=== PATIENT | female | born 1985 | race Caucasian/White ===

== ENCOUNTER 2016-11-25 21:05 | Inpatient (IN) | payer OTHER ==
[2016-11-25] MEDS ORDERED: AMPICILLIN - 100 ML IVPB ONE (22:00)
[2016-11-25 23:05] LABS: BASOPHIL 0.5 % (0-2.0); EOSINOPHIL 1.1 % (0-4.5); MCH 30.4 pg (25.7-33.7); MCHC 34.2 g/dl (32.0-36.0); MEAN CELL VOLUME 89.1 fl (80-96); MEAN PLT VOLUME 9.6 fl (7.5-11.1); NEUTROPHILS 71.2 % (42.8-82.8); PLATELET COUNT 238 K/MM3 (134-434); RDW 14.4 % (11.6-15.6); WHITE BLOOD COUNT 7.8 K/mm3 (4.0-10.0)
[2016-11-25 23:09] LABS: URINE APPEARANCE CLEAR; URINE BILIRUBIN NEGATIVE (NEGATIVE); URINE COLOR LTYELLOW; URINE GLUCOSE (UA) NEGATIVE (NEGATIVE); URINE KETONE NEGATIVE (NEGATIVE); URINE LEUK ESTERASE NEGATIVE (NEGATIVE); URINE NITRITE NEGATIVE (NEGATIVE); URINE UROBILINOGEN NEGATIVE E.U./dl (0.2-1.0)
[2016-11-25 23:13] LABS: INR 1.09 (0.82-1.09)
[2016-11-25 23:16] LABS: ACTIVATED PTT 28.9 SECONDS (26.9-34.4)
[2016-11-25 23:20] LABS: URINE BLOOD 1+ (NEGATIVE); URINE PROTEIN 1+ (NEGATIVE)
[2016-11-25 23:22] LABS: URINE RBC 4 /hpf (0-3); URINE WBC 1 /hpf (3-5)
[2016-11-25 23:27] VITALS: BMI 40.4
[2016-11-25] MEDS ORDERED: DEXTROSE 5%-LACTATED RINGERS 1,000 ML IV SCH ×2 (23:30→23:45)
[2016-11-25] MEDS ORDERED: BUTORPHANOL TARTRATE 1 MG/ML VIAL IVPB ONE (23:57)
[2016-11-26] MEDS ORDERED: TUBERCULIN PPD 5 TU/0.1ML SYRINGE (IN PATIENT USE ONLY) ID ONE
--- NOTE | 2016-11-26 00:02 | HP ---
[id number] Source: Patient - Past Medical History ...: 6 ...Para: 0 ...Term: 0 ...: 0 ...Spon : 0 ...Induced : 5 ...Multiple Gestation: 0 ...LMP: 02/03/16 ... Weeks Gestation by Dates: 42.2 ...EDC by Dates: 11/09/16 ...EDC by Sono: 11/18/16 - Past Surgical History Hx Myomectomy: No Hx Transabdominal Cerclage: No - Smoking History Smoking history: Never smoked Have you smoked in the past 12 months: No - Alcohol/Substance Use Hx Alcohol Use: No - Social History History of Recent Travel: No Home Medications - Allergies Allergies/Adverse Reactions: Allergies Allergy/AdvReac Type Severity Reaction Status Date / Time No Known Allergies Allergy Verified 11/25/16 21:55 - Home Medications Home Medications: Ambulatory Orders Mesalamine [Apriso] 0.375 gm PO DAILY 11/25/16 Vitamins (Sjr) - 1 tab PO DAILY 11/25/16 Ibuprofen [Motrin -] 600 mg PO QID PRN #28 tablet 11/28/16 Oxycodone HCl/Acetaminophen [Percocet 5-325 mg Tablet -] 1 tab PO Q4H #30 tablet MDD 6 11/28/16 Physical Exam - Maternity Vital Signs: Vital Signs Temperature 97.6 F 11/25/16 22:00 Pulse Rate 99 H 11/25/16 23:00 Respiratory Rate 20 11/25/16 23:00 Blood Pressure 132/79 11/25/16 23:00 O2 Sat by Pulse Oximetry (%) Constitutional: Yes: Well Nourished, No Distress Eyes: Yes: WNL HENT: Yes: WNL Neck: Yes: WNL Cardiovascular: Yes: WNL Lungs: Clear to auscultation Breast(s): Yes: WNL - Abdominal Exam/OB Category: I Decelerations: None - Vaginal Exam/OB Vaginal Bleediing: No Dilatation (cm): closed Amniotic Fluid: Yes: Clear - Physical Exam Psychiatric: Yes: WNL, Alert, Oriented - Labs Lab Results: CBC, BMP 11/25/16 21:30 Problem List - Problems (1) Spontaneous rupture of membranes Code(s): [id number] - Assessment/Plan srom Cat 1 Plan admit observe if no labor will do cervidil
[2016-11-26 00:15] LABS: CALCIUM 8.8 mg/dL (8.5-10.1); CREATININE 0.6 mg/dL (0.55-1.02); URIC ACID 4.7 mg/dL (2.6-7.2)
[2016-11-26] MEDS: AMPICILLIN - 100 ML IVPB SCH ×3 (02:00→10:00)
[2016-11-26 03:08] LABS: SGOT/AST 13 U/L (15-37); SGPT/ALT 10 U/L (12-78)
[2016-11-26] MEDS ORDERED: ELECTROLYTE-148 SOLN 1,000 ML IV SCH ×2 (10:25→11:25)
[2016-11-26] MEDS ORDERED: CITRIC ACID/SODIUM CITRATE 30 ML UNIT-DOSE CUP PO ONE (10:29)
[2016-11-26 12:00] LABS: ARTERIAL BLD GAS O2 SATURATION 18.5 % (90-98.9); ARTERIAL BLOOD GAS BASE EXCESS -3.2 meq/l (-2-2); ARTERIAL BLOOD GAS HCO3 23.8 meq/L (22-26); ARTERIAL BLOOD GAS PO2 14.1 mmHg (80-100); LPM/O2% 21%; PT. ON O2? NO
[2016-11-26 12:01] LABS: TYPE OF O2 ROOM AIR
[2016-11-26 12:02] LABS: ARTERIAL BLD GAS O2 SATURATION 50.6 % (90-98.9); ARTERIAL BLOOD GAS BASE EXCESS -2.8 meq/l (-2-2); ARTERIAL BLOOD GAS HCO3 21.9 meq/L (22-26); ARTERIAL BLOOD GAS pH 7.36 (7.35-7.45)
[2016-11-26 12:02] LABS: ARTERIAL BLOOD GAS pH 7.28 (7.35-7.45)
[2016-11-26 12:03] LABS: ARTERIAL BLOOD GAS PO2 22.9 mmHg (80-100); LPM/O2% 21%; PT. ON O2? NO; TYPE OF O2 ROOM AIR
[2016-11-26] MEDS ORDERED: METHYLERGONOVINE MALEATE 0.2 MG/1 ML AMP IM PRN (12:14)
--- NOTE | 2016-11-26 12:14 | OP ---
Operative Note - Note: Operative Date: 11/26/16 Pre-Operative Diagnosis: Failure to progress. elective CS Operation: Primary Low transverse Section Findings: Live female infant Post-Operative Diagnosis: Same as Pre-op Surgeon: Adrianna Renae [employer] Lab Manager: Farhat Lechuga Anesthesia: Spinal Estimated Blood Loss (mls): 500 Operative Report Dictated: Yes
[2016-11-26] MEDS ORDERED: morphine SULFATE/Preservative Free 0.5 MG/ML (1cc Syringe) EP ONE (12:29)
[2016-11-26] MEDS ORDERED: ONDANSETRON 4 MG/2 ML VIAL IVPUSH PRN (12:29)
[2016-11-26] MEDS ORDERED: LACTATED RINGERS SOLUTION 1,000 ML IV SCH (12:30)
--- NOTE | 2016-11-26 12:49 | SURG ---
Surgery Guitar Instructor Note Guitar Instructor: Farhat Lechuga PA-C Date of Service: 11/26/16 Diagnosis: Failure to progress. elective CS Procedure: Primary Low transverse Section I was present for the entirety of the operative procedure. For further detail, please refer to operative report. Visit type - Case Type Case Type: Scheduled Admission - New patient This patient is new to me today: Yes Date on this admission: 11/26/16
[2016-11-26] MEDS ORDERED: OXYTOCIN 20 UNITS in 0.9% NS 1,000 ML IV ONE (13:19)
--- NOTE | 2016-11-26 18:08 | OP ---
DATE OF OPERATION: 11/26/2016 PREOPERATIVE DIAGNOSIS: Failure to progress and elective operation primary low transverse section. POSTOPERATIVE DIAGNOSIS: Live female . SURGEON: Adrianna Renae MD [place] ATTORNEY: GAIL Florence ANESTHESIA: Spinal. ESTIMATED BLOOD LOSS: 500 mL. DESCRIPTION OF PROCEDURE: The patient was taken to the operating room and placed in supine position, prepped and draped in the usual sterile fashion. A time-out was performed in accordance with hospital regulation. Scalpel was made. Cautery was then used to cut through layers of the abdominal wall to the level of the fascia. Fascia was cut in the midline, and cautery was then used to open the fascia in a smiling fashion. Kochers were then used to bluntly and sharply dissect the rectus muscles off the fascia. Muscles split in the midline, and peritoneal cavity was then entered and carried upward and downward. Bladder retractor was then placed. Vesicouterine reflection was entered. The bladder was bluntly dissected out of the operative field. Scalpel was then used to make a low transverse uterine incision. Incision was carried upward using bandage scissors. A live female was delivered in OT position. Nose and mouth suction performed. Shoulders were delivered without difficulty. Cord was clamped. Cord blood was obtained. Cord pH was obtained. was handed to pediatric nurse. Uterus was exteriorized and cleaned with clean laparotomy pads. Placenta was manually extracted from the uterus. Uterine incision then closed using 0 Biosyn suture 1st layer continuous and locking, 2nd layer imbricating the 1st layer. Hemostasis was achieved. Figure of eight sutures were used to tie off any bleeding I noted to have uterus. Uterus interiorized. Abdominal cavity cleaned with clean laparotomy pads. Tubes and ovaries noted to be within normal limits. Peritoneum closed using 0 Vicryl suture. Fascia was then closed using 0 Vicryl suture in 2 parts continuous. The subcutaneous was then closed using 0 Vicryl suture, and the skin was then closed using 4-0 Biosyn in subcuticular fashion. The wound was washed and dressed. The patient tolerated the procedure well and was taken to the recovery room in stable condition. ADRIANNA RENAE M.D. [id number]
[2016-11-26] MEDS: IBUPROFEN 800 MG/8 ML IJ IVPB PRN (19:19)
[2016-11-27] MEDS: IBUPROFEN 800 MG/8 ML IJ IVPB PRN (05:05)
[2016-11-27 08:17] LABS: BASOPHIL 0.5 % (0-2.0); EOSINOPHIL 0.5 % (0-4.5); MCH 30.3 pg (25.7-33.7); MCHC 33.7 g/dl (32.0-36.0); MEAN PLT VOLUME 9.1 fl (7.5-11.1); NEUTROPHILS 76.7 % (42.8-82.8); PLATELET COUNT 199 K/MM3 (134-434); RDW 14.1 % (11.6-15.6); WHITE BLOOD COUNT 8.5 K/mm3 (4.0-10.0)
[2016-11-27] MEDS: SIMETHICONE 80 MG TAB.CHEW (FP) PO PRN ×3 (08:29→19:10)
[2016-11-27] MEDS ORDERED: DIPHTH,PERTUSS(ACELL),TET 0.5 ML DISP.SYRIN IM ONE (10:00)
[2016-11-27] MEDS ORDERED: INFLUENZA VACCINE 45 MCG/0.5 ML (MDV 16-17) IM ONE (10:00)
[2016-11-27] MEDS ORDERED: INFLUENZA VACCINE 60 MCG/0.5 ML (P/F DISP.SYRIN 16-17) IM ONE (10:00)
[2016-11-27] MEDS: ENOXAPARIN NA (PORCINE) 40 MG/0.4 ML DISP.SYRIN SQ SCH (10:06)
--- NOTE | 2016-11-27 11:54 | PN ---
Progress Note (short form) - Note Progress Note: Anesthesiology Post-op POD#1 s/p C/S under spinal anesthesia. Pt. sitting comfortably in chair. Denies h/a or paresthesia. Able to walk and urinate without difficulty. VSS.
[2016-11-27] MEDS ORDERED: BISACODYL 10 MG SUPP.RECT RC PRN (12:14)
--- NOTE | 2016-11-27 13:07 | PN ---
Post Progress Note - Subjective Subjective: 30 yo Para1 status post primary , seen and evaluated. She c/o incision pain and swollen legs. Type of Delivery: Primary C/S Vital Signs: Vital Signs Temperature 98.0 F 11/27/16 05:27 Pulse Rate 92 H 11/27/16 05:27 Respiratory Rate 21 11/27/16 05:27 Blood Pressure 123/78 11/27/16 05:27 O2 Sat by Pulse Oximetry (%) 98 11/26/16 13:55 Breast Exam: Yes: Soft Uterus: Yes: Fundus Firm Incision: Yes: Dressing dry and intact Abdomen/GI: Yes: Abdomen soft, Tolerating PO Lochia: Yes: Rubra Lochia, amount: Small Extremities: Yes: Edema Perineum: Yes: Intact Activity: Ambulating - Labs Labs: CBC WBC 8.5 K/mm3 (4.0-10.0) 11/27/16 06:30 RBC 3.59 M/mm3 (3.60-5.2) L 11/27/16 06:30 Hgb 10.9 GM/dL (10.7-15.3) 11/27/16 06:30 Hct 32.3 % (32.4-45.2) L 11/27/16 06:30 MCV 90.0 fl (80-96) 11/27/16 06:30 MCHC 33.7 g/dl (32.0-36.0) 11/27/16 06:30 RDW 14.1 % (11.6-15.6) 11/27/16 06:30 Plt Count 199 K/MM3 (134-434) 11/27/16 06:30 MPV 9.1 fl (7.5-11.1) 11/27/16 06:30 Neutrophils % 76.7 % (42.8-82.8) 11/27/16 06:30 Lymphocytes % 16.3 % (8-40) 11/27/16 06:30 Monocytes % 6.0 % (3.8-10.2) 11/27/16 06:30 Eosinophils % 0.5 % (0-4.5) 11/27/16 06:30 Basophils % 0.5 % (0-2.0) 11/27/16 06:30 Retic Count 1.72 % (0.5-1.5) H 11/25/16 21:30 Haptoglobin 156 mg/dL (34-200) 11/25/16 21:30 Problem List - Problems (1) Status post primary low transverse section Code(s): Z98.891 - HISTORY OF UTERINE SCAR FROM PREVIOUS SURGERY Assessment/Plan Status post Ambulation Analgesia PRN pain Leg elevation at night. Continue Post op care
[2016-11-27] MEDS: oxyCODONE HCL 5 MG TABLET PO PRN ×2 (14:22→19:10)
[2016-11-27] MEDS: IBUPROFEN 600 MG TABLET (FP) PO PRN ×2 (14:23→19:10)
[2016-11-28] MEDS: IBUPROFEN 600 MG TABLET (FP) PO PRN ×6 (00:19→22:11)
[2016-11-28] MEDS: SIMETHICONE 80 MG TAB.CHEW (FP) PO PRN ×6 (00:19→22:12)
[2016-11-28] MEDS: oxyCODONE HCL 5 MG TABLET PO PRN ×6 (00:20→22:11)
--- NOTE | 2016-11-28 07:58 | PN ---
Post Progress Note - Subjective Subjective: Pt doing well, no complaints today. Pain controlled, tolerating diet. Ambulating, voiding. VB minimal/moderate. Denies CP/SOB/F/C/CHOUDHURY. Type of Delivery: Primary C/S Vital Signs: Vital Signs Temperature 97.7 F 11/27/16 22:00 Pulse Rate 87 11/27/16 22:00 Respiratory Rate 18 11/27/16 22:00 Blood Pressure 134/76 11/27/16 22:00 O2 Sat by Pulse Oximetry (%) 98 11/26/16 13:55 Breast Exam: Yes: Soft Uterus: Yes: Fundus below umbilicus Incision: Yes: Sutures intact Abdomen/GI: Yes: Abdomen soft, Passing flatus, Tolerating PO. No: Abdominal Distention, Tender Lochia: Yes: Rubra Lochia, amount: Small Extremities: Yes: Calves non-tender, Edema (trace LE edema bilaterally - nonpitting). No: Calf tenderness Activity: Ambulating - Labs Labs: CBC WBC 8.5 K/mm3 (4.0-10.0) 11/27/16 06:30 RBC 3.59 M/mm3 (3.60-5.2) L 11/27/16 06:30 Hgb 10.9 GM/dL (10.7-15.3) 11/27/16 06:30 Hct 32.3 % (32.4-45.2) L 11/27/16 06:30 MCV 90.0 fl (80-96) 11/27/16 06:30 MCHC 33.7 g/dl (32.0-36.0) 11/27/16 06:30 RDW 14.1 % (11.6-15.6) 11/27/16 06:30 Plt Count 199 K/MM3 (134-434) 11/27/16 06:30 MPV 9.1 fl (7.5-11.1) 11/27/16 06:30 Neutrophils % 76.7 % (42.8-82.8) 11/27/16 06:30 Lymphocytes % 16.3 % (8-40) 11/27/16 06:30 Monocytes % 6.0 % (3.8-10.2) 11/27/16 06:30 Eosinophils % 0.5 % (0-4.5) 11/27/16 06:30 Basophils % 0.5 % (0-2.0) 11/27/16 06:30 Retic Count 1.72 % (0.5-1.5) H 11/25/16 21:30 Haptoglobin 156 mg/dL (34-200) 11/25/16 21:30 Problem List - Problems (1) Status post primary low transverse section Code(s): Z98.891 - HISTORY OF UTERINE SCAR FROM PREVIOUS SURGERY Assessment/Plan 30 y/o POD #2 s/p primary low transverse section - AFVSS - Hgb 10.9 post op, pt stable and doing well - Regular diet, PO pain meds, ambulation - plan for discharge home tomorrow if stable
[2016-11-28] MEDS: ENOXAPARIN NA (PORCINE) 40 MG/0.4 ML DISP.SYRIN SQ SCH (10:35)
[2016-11-28] MEDS ORDERED: SENNOSIDES/DOCUSATE COMBO (SENNA PLUS) TABLET (UD) PO PRN (22:52)
[2016-11-29] MEDS: SIMETHICONE 80 MG TAB.CHEW (FP) PO PRN ×3 (03:32→12:45)
[2016-11-29] MEDS: IBUPROFEN 600 MG TABLET (FP) PO PRN ×3 (03:32→12:45)
[2016-11-29] MEDS: oxyCODONE HCL 5 MG TABLET PO PRN ×3 (03:33→12:44)
[2016-11-29 07:38] LABS: BASOPHIL 0.6 % (0-2.0); EOSINOPHIL 2.7 % (0-4.5); MCH 30.4 pg (25.7-33.7); MCHC 33.8 g/dl (32.0-36.0); MEAN CELL VOLUME 89.9 fl (80-96); MEAN PLT VOLUME 8.6 fl (7.5-11.1); NEUTROPHILS 63.9 % (42.8-82.8); PLATELET COUNT 238 K/MM3 (134-434); RDW 14.1 % (11.6-15.6); WHITE BLOOD COUNT 6.9 K/mm3 (4.0-10.0)
[2016-11-29 08:11] VITALS: BP 128/78; TEMP 98
[2016-11-29] MEDS: ENOXAPARIN NA (PORCINE) 40 MG/0.4 ML DISP.SYRIN SQ SCH (10:00)
--- NOTE | 2016-11-29 11:05 | DS ---
Physical Exam-JUNIOR COPYWRITER Vital Signs: Vital Signs Temperature 98 F 11/29/16 08:09 Pulse Rate 98 H 11/29/16 08:09 Respiratory Rate 20 11/29/16 08:09 Blood Pressure 128/78 11/29/16 08:09 O2 Sat by Pulse Oximetry (%) 98 11/26/16 13:55 Constitutional: Yes: Well Nourished, No Distress, Calm Eyes: Yes: Conjunctiva Clear, EOM Intact HENT: Yes: Atraumatic, Normocephalic Neck: Yes: Supple, Trachea Midline Cardiovascular: Yes: Regular Rate and Rhythm Respiratory: Yes: Regular, CTA Bilaterally Gastrointestinal: Yes: Normal Bowel Sounds, Soft. No: Tenderness ....Post : Yes: Uterus firm, Uterus non-tender Edema: Yes Edema: LLE: Trace, RLE: Trace Wound/Incision: Yes: Clean/Dry, Well Approximated Neurological: Yes: Alert, Oriented Psychiatric: Yes: Alert, Oriented Labs: CBC, BMP 11/29/16 06:00 11/25/16 21:30 Delivery - Delivery Section: Primary, Low Flap Transverse Type of Anesthesia: Spinal Episiotomy/Laceration: None EBL (cc): 500 Delivery, Single - Stages of Labor Date 1st Stage Initiatied: 11/26/16 Time 1st Stage Initiated: 09:00 Date of Delivery: 11/26/16 Time of Delivery: 11:33 Time Placenta Delivered: 11:34 Placenta: Yes: Manual Removal - Condition of Infant Market Research Intern/Library Paraprofessional Present: Yes Name: Jess Ospina Infant Gender: Female Weight: 7 lb 11 oz Position: Right, OT Total Hours ROM (Hrs/Mins): 15/3 - 1 Minute Total Score: 9 5 Minutes Total Score: 9 - Clark Feeding Plan Initial Plan: Exclusive throughout hospitalization Discharge Summary Reason For Visit: LABOR Current Active Problems Spontaneous rupture of membranes (Acute) Status post primary low transverse section (Acute) Procedures: Principal: Primary section Hospital Course: Patient admitted on 11/25/16 in labor, on 11/26/16 underwent elective primary section (see operative report for details). The patient underwent an unremarkable post /post op recovery. On Post op day 3 the patient was voiding, passing flatus, tolerating diet and ambulation and was discharged home in stable condition. Condition: Good - Instructions Diet, Activity, Other Instructions: Physical activity Resume your normal everyday activity as tolerated but no heavy lifting or strenuous exercise until seen by your surgeon. You may walk unlimited amounts and climb stairs. You may resume driving the car when you feel safe and comfortable behind the wheel. No sexual activity as instructed. Wound care . If there are tapes on the skin leave them in place. They will peel off in the next 7 to 10 days. Do Not Peel them off. You may shower the day after surgery. If there are tapes present on the skin, you may shower over them. Diet There are no dietary restrictions. Eat healthy, high-fiber foods. Drink 6 to 8 glasses of liquid each day. This will assist in keeping your bowels regular. Pain management You may take Tylenol or Ibuprofen (for example, Motrin, Advil etc.) for mild pain. Please take any narcotic medication that is prescribed to you for moderate to severe pain - and please take as directed. DO NOT drive if taking narcotics. Call MD for any of the following: Severe pain not relieved by medication Fever of 101 or higher Excessive bleeding or drainage on dressing Inability to urinate Call to make an appointment for 7 days to check your incision. Referrals: Jayde Humphries DO [Staff Physician] - 1 Week Disposition: HOME - Home Medications Comprehensive Discharge Medication List: Ambulatory Orders Mesalamine [Apriso] 0.375 gm PO DAILY 11/25/16 Vitamins (Sjr) - 1 tab PO DAILY 11/25/16 Ibuprofen [Motrin -] 600 mg PO QID PRN #28 tablet 11/28/16 Oxycodone HCl/Acetaminophen [Percocet 5-325 mg Tablet -] 1 tab PO Q4H #30 tablet MDD 6 11/28/16
[2016-11-29 11:32] VITALS: PULSE 86
--- NOTE | 2016-12-02 12:36 | PATH ---
Surgical Pathology Report Patient Name: JARRELL HAYES [facility]. Rec. #: [id number] /Age/Gender: 1985 (Age: 30) / F Account: [id number] Location: [facility] OBS/SCHEDULING ASSISTANT Taken: 11/26/2016 Received: 11/29/2016 Reported: 12/02/2016 Physicians: Adrianna Renae M.D. Specimen(s) Received PLACENTA Clinical History , 41 weeks, failure to dilate, iAB x5 Primary c/section Final Diagnosis PLACENTA, DELIVERY: FOCALLY DISRUPTED THIRD TRIMESTER PLACENTA WITH MILD INCREASE IN PREVILLOUS, PERIVILLOUS, AND PRECHORIONIC FIBRIN DEPOSITION, THREE VESSEL UMBILICAL CORD, AND UNREMARKABLE PLACENTAL MEMBRANES. Electronically Signed Brian Houser M.D. Gross Description The specimen is received fresh, labeled "placenta" and is a 479 gram, 23.5 x 17.0 x 2.3 cm placenta with attached membranes and umbilical cord. The attached membranes are mayorga, translucent with focal opacities and insert marginally. The umbilical cord measures 5 cm in length and averages 1 cm in diameter. The cord inserts eccentrically, 5 cm to the nearest margin. No true knots or strictures are identified. Cut surface of the umbilical cord reveals 3 vessels. The surface is rowe-blue with fibrin deposition and appropriate caliber vessels. The maternal surface is red-brown with focal defects. Sectioning reveals red-brown, spongy parenchyma. No focal lesions are identified. Machine Clipper sections are submitted in three cassettes as follows: 1- membrane rolls and umbilical cord; 2-3- full thickness sections of placenta. 12/01/201612/01/2016
== END 2016-11-29 14:10 | disposition home or self-care (01) | DRG 540 ==
LOC: JDEL 21:05 → JLDR 21:30 → J3W 11-26 14:20
PROVIDERS: ADMIT Obstetrics & Gynecology; ATTEND Obstetrics & Gynecology
PROC: 10D00Z1 Extraction of Products of Conception, Low, Open Approach (ICD-10-PCS; principal; 2016-11-26)
DX: O62.1 Secondary uterine inertia (principal); O62.0 Primary inadequate contractions; Z3A.41 41 weeks gestation of pregnancy; Z37.0 Single live birth
CPT/HCPCS: 36415; 36600; 80048; 81003; 81015; 82803; 82977; 83010; 84450; 84460; 84550; 85025; 85044; 85610; 85730; 86593; 86850; 86900; 86901; 88307-TC; 90686; 90715; G0008